=== PATIENT | female | born 1975 | race Caucasian/White ===

== ENCOUNTER 2016-03-31 07:07 | Emergency (ER) | payer OTHER ==
[2016-03-31 07:34] VITALS: BP 127/83
--- NOTE | 2016-03-31 07:51 | UC ---
Abdominal Pain Female HPI - HPI Summary HPI Summary: NAUSEA , MID CHEST TIGHTNESS, NO VOMITING , NO SHORTNESS OF BREATH . - History of Current Complaint Chief Complaint: UCGI Stated Complaint: NAUSEA Time Seen by Provider: 03/31/16 07:23 Hx Obtained From: Patient Hx Last Menstrual Period: 03/09/16 Onset/Duration: Gradual Onset, Lasting Days - 2, Still Present Timing: Constant Severity Initially: Moderate Severity Currently: Moderate Location: Epigastric Radiates: No Character: Burning Aggravating Factor(s): Food Alleviating Factor(s): Nothing Associated Signs and Symptoms: Positive: Chest Pain, Nausea. Negative: Diaphoresis, Fever, Cough, Dizzy, Back Pain, Constipation, Blood in Stool, Urinary Symptoms, Decreased Appetite, Vaginal Bleeding, Vaginal Discharge, Vomiting, Diarrhea Allergies/Adverse Reactions: Allergies Allergy/AdvReac Type Severity Reaction Status Date / Time Sulfa Antibiotics Allergy Vomiting Verified 03/31/16 07:34 seasonal Allergy Congestion Uncoded 03/31/16 07:34 Home Medications: Home Medications Lansoprazole [Prevacid] 20 mg PO DAILY PRN 03/31/16 [History Confirmed 03/31/16] PMH/Surg Hx/FS Hx/Imm Hx Endocrine History Of: Reports: Thyroid Disease - hypo - Surgical History Surgical History: Yes Surgery Procedure, Year, and Place: c section x 4 - Family History Known Family History: Negative: Diabetes - Social History Alcohol Use: Rare Substance Use Type: None Smoking Status (MU): Never Smoked Tobacco Review of Systems Constitutional: Negative Skin: Negative Eyes: Negative ENT: Negative Respiratory: Negative Cardiovascular: Chest Pain Gastrointestinal: Other - NUASEA Genitourinary: Negative Motor: Negative All Other Systems Reviewed And Are Negative: Yes Physical Exam Triage Information Reviewed: Yes Appearance: Well-Appearing, No Pain Distress, Well-Nourished Vital Signs: Initial Vital Signs Temp 99.6 F 03/31/16 07:30 Pulse 82 03/31/16 07:30 Resp 18 03/31/16 07:30 BP 127/83 03/31/16 07:30 Pulse Ox 100 03/31/16 07:30 Vital Signs Reviewed: Yes Eyes: Positive: Conjunctiva Clear ENT: Positive: Normal ENT inspection, Hearing grossly normal, Pharynx normal Neck exam: Normal Neck: Positive: Supple, Nontender, No Lymphadenopathy Respiratory: Positive: Chest non-tender, Lungs clear, Normal breath sounds Cardiovascular: Positive: RRR, No Murmur, Pulses Normal Abdomen Description: Positive: Nontender, Soft. Negative: Distended, Guarding Bowel Sounds: Positive: Present Skin Exam: Normal Abd Pain Female Course/Dx - Differential Dx/Diagnosis Provider Diagnoses: ESOPHAGITIS Discharge - Discharge Plan Condition: Stable Disposition: HOME Prescriptions: Pantoprazole TAB (NF) [Protonix TAB (NF)] 40 mg PO DAILY #30 tab Patient Education Materials: Esophagitis (ED) Referrals: Rigoberto Mckeon MD [Primary Care Provider] - 7 Days Additional Instructions: MAY NEED TO CHECK TSH IN 4 WEEKS COMBO MAY DECREASE YOUR THYROID MEDICATION EFFICACY
== END 2016-03-31 07:57 | disposition home or self-care (01) ==
LOC: UCCORT 07:07
DX: K20.9 Esophagitis, unspecified (principal); R07.9 Chest pain, unspecified; E03.9 Hypothyroidism, unspecified; Z88.2 Allergy status to sulfonamides
CPT/HCPCS: 93005; 99212; G0463